=== PATIENT | male | born 2000 | race Caucasian/White ===

== ENCOUNTER 2023-03-13 19:29 | Emergency (ER) | payer SELFPAY ==
[~2023-03-13] VITALS: Ht 167.6 cm; Wt 81.6 kg
[2023-03-13 19:45] VITALS: BP 140/71; PULSE 65; RESP 18; TEMP 98.8; O2SAT 98
--- NOTE | 2023-03-13 19:45 | NUR ---
ARRIVAL PT AMBULATORY INTO ER WITH NO DISTRESS ON RA. 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 APPROX 1.5CM LACERATION TO MEDIAL ASPECT OF LEFT MIDDLE FINGER. BLEEDING CONTROLLED. PAIN WITH MOVEMENT OF FINGER. HISTORY AND STATUS OBTAINED. VS AND ASSESSMENT COMPLETE CHARTED. DR BAUMAN NOTIFIED OF PT ARRIVAL.
[2023-03-13] MEDS ORDERED: NS 1000ML 1,000 ML ONE (19:59)
[2023-03-13] MEDS ORDERED: WATER ONE (20:00)
[2023-03-13] MEDS ORDERED: BOOSTRIX IM ONE ×2 (20:00→20:15)
--- NOTE | 2023-03-13 20:00 | ER.PDOC ---
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 Does not believe his tetanus injections are UTD. Has laceration on his distal L middle finger from slicing device. Occurred: just prior to arrival (1 hour prior to arrival) Where: work Severity: mild Context: laceration Location of Injury: (L) fingers Modifying Factors: nothing, pain on movement Past Medical History Medical History: no pertinent history Surgical History: no surgical history Family History Significant Family History: no pertinent family hx Social History Smoking: non-smoker Reviewed Nursing Reviewed: Vital Signs, Abn. Noted, Nursing Assessment Review of Systems Constitutional: no symptoms reported EENTM: no symptoms reported Respiratory: no symptoms reported Cardiovascular: no symptoms reported Gastrointestinal: no symptoms reported Genitourinary: no symptoms reported Musculoskeletal: see HPI Skin: see HPI Psychiatric/Neurological: no symptoms reported All Other Systems: Reviewed and Negative Physical Exam General Appearance: Alert, No Apparent Distress Hand: tenderness (~1.5 cm laceration distal L middle finger along lateral aspect, somewhat diagonally) Wrist: nml inspection Neuro: motor nml Vascular: no vascular compromise Tendons: tendon function nml Forearm/Elbow/Arm: uninjured above wrist Skin: warm/dry (other than as above) Head/ENT: nml inspection Neck/Back: nml inspection Resp/CVS: lungs clear, reg. rate & rhythm Abdomen: non-tender ED LACERATION WOUND REPAIR Wound Location & Length (Requi: L middle finger Wound Length (cm): 1 Wound cleaned: betadine Distal NVT: neuro intact, vasc intact Anesthesia type: local Anesthesia: 1% Lidocaine Wound's Depth, Shape: linear Wound Explored: clean Tendon Intact: Yes Wound Debrided: minimal Wound Repaired With: sutures Suture Size/Type: 4:0 Suture Style: interupted Number of Sutures: 3 Layer Closure?: No Sterile Dressing Applied?: Yes Results/Orders Results/Orders Orders - HIEN BAUMAN MD Diph,René(Acell),Tet Vac/Pf (Boostrix (03/13/23 20:00) 0.9 % Sodium Chloride (Ns 1000ml) (03/13/23 19:59) Water For Irrigation,Sterile (Water) (03/13/23 20:00) Lidocaine Hcl (Lidocaine 1% Vial) (03/13/23 20:06) Neomycin/Bacitracin/Polymyxinb (Triple A (03/13/23 20:15) Vital Signs Date Time Temp Pulse Resp B/P (MAP) Pulse Ox O2 Delivery O2 Flow Rate FiO2 03/13/23 19:45 98.8 65 18 98 03/13/23 19:45 98.8 65 18 140/71 (94) 98 Room Air* 0 21 03/13/23 19:45 98.8 65 18 Administered Medications Medications (Trade) Dose Ordered Sig/Leidy Route PRN Reason Start Time Stop Time Status Last Admin Dose Admin Diphtheria/ Tetanus/Acell Pertussis (Boostrix) 0.5 ml ONCE ONCE IM 03/13/23 20:00 03/13/23 20:01 UNV 03/13/23 20:18 0.5 ML Progress Progress MDM We will update tetanus and repair with sutures. ER DEPART Departure Time of Disposition: 20:37 Disposition: 01 HOME / SELF CARE / HOMELESS Impression: Primary Impression: Laceration of left middle finger w/o foreign body w/o damage to nail Condition: Stable Patient Instructions: Laceration Care, Adult, Sutured Wound Care Referrals: PCP,UNKNOWN (PCP) PRIMARY CARE PROVIDER Additional Instructions: Good wound hygiene. Suture removal 7-10 days. Duration or Time Spent with Pa: 10 min HIEN BAUMAN MD Mar 13, 2023 20:00
[2023-03-13] MEDS ORDERED: LIDOCAINE 1% VIAL ONE (20:06)
--- NOTE | 2023-03-13 20:07 | NUR ---
WOUND WOUND SOAKING IN BETADINE AND STERILE WATER AT THIS TIME PER DR BAUMAN.
[2023-03-13] MEDS ORDERED: TRIPLE ANTIBIOTIC OINTMENT PKT TP ONE (20:15)
[2023-03-13 20:40] VITALS: BP 135/53; PULSE 60; RESP 18; TEMP 98.8; O2SAT 98
== END 2023-03-13 20:43 | disposition home or self-care (01) ==
LOC: ER 19:29
DX: S61.213A Laceration without foreign body of left middle finger without damage to nail, initial encounter (principal); X58.XXXA Exposure to other specified factors, initial encounter; Y93.89 Activity, other specified; Y92.89 Other specified places as the place of occurrence of the external cause; Y99.8 Other external cause status
CPT/HCPCS: 99283; 90471; 12001; 90715; J7030; J2001